=== PATIENT | male | born 1980 | race Caucasian/White ===

== ENCOUNTER → 2020-09-20 | Outpatient (CLI) | payer BC, OTHER ==
[~2020-09-20] MED LIST: HYDR-34 PO
--- NOTE | 2020-09-20 09:47 | Diagnostic Imaging Report ---
PROCEDURE: CT sinuses without contrast TECHNIQUE: Multiple contiguous axial images were obtained through the sinuses without the use of intravenous contrast. Coronal and sagittal reformations were then performed. Auto Exposure Controls were utilized during the CT exam to meet ALARA standards for radiation dose reduction. INDICATION: Facial injury. FINDINGS: There are minimally displaced fractures involving nasal bones with mild leftward deviation of the anterior fracture fragments. No other definite acute fractures identified. 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 There is mural thickening in the floor of the right maxillary sinus, however no air-fluid level is identified. There is also mural thickening within the anterior ethmoid air cells, bilaterally. Mastoid air cells are clear. IMPRESSION: Mildly angulated bilateral nasal bone fractures. Clinical correlation would be useful. Mural thickening in anterior ethmoid air cells and mural thickening in the floor of the right maxillary sinus may be on the basis of chronic sinus disease. Dictated by: Dictated on workstation # [id number]
== END ==
LOC: RAD 08:25
PROVIDERS: ATTEND Otolaryngology Otolaryngology/Facial Plastic Surgery
DX: S02.2XXA Fracture of nasal bones, initial encounter for closed fracture (principal); J32.2 Chronic ethmoidal sinusitis
CPT/HCPCS: 70486

== ENCOUNTER 2021-10-30 10:45 | Emergency (ER) | payer OTHER ==
[~2021-10-30] VITALS: Ht 190.5 cm; Wt 81.6 kg
--- NOTE | 2021-10-30 11:16 | ED Cough/URI ---
General Chief Complaint: COVID19 Suspect/Confirmed Stated Complaint: SOB,COUGH,CP Source: patient Exam Limitations: no limitations History of Present Illness Date Seen by Provider: Oct 30, 2021 Time Seen by Provider: 11:00 Initial Comments to ER with shortness of breath, cough that is productive in nature, chest tightness. The cough has been present since , he had a telehealth visit on the Friday after and was given a prescription for amoxicillin but did not notice any improvement. He has a history of bronchitis he says. He does not smoke. He is unvaccinated against COVID. He has not had fevers but he did have some chills last night, headache this morning. His chest tightness seems to come and go at random and was improved with use of a nebulizer that his family has at home last night. He is otherwise healthy and has no medical conditions and takes no medications Timing/Duration: constant Severity/Quality: moderate Prior Episodes/Possible Cause: occasional episodes Associated Symptoms: cough, shortness of breath Allergies and Home Medications Allergies Coded Allergies: No Known Drug Allergies (Unverified , 07/25/12) Patient Home Medication List Home Medication List Reviewed: Yes Hydrocodone Bit/Acetaminophen (Lortab 7.5 Mg Tablet) 1 Ea Tablet, 1-2 EA PO Q 4 - 6 HR PRN, (Reported) Entered as Reported by: YANETH UDMONT on 07/26/12 0936 Review of Systems Review of Systems Constitutional: see HPI, chills EENTM: see HPI Respiratory: see HPI, cough, short of breath Genitourinary: no symptoms reported Musculoskeletal: no symptoms reported Skin: no symptoms reported Psychiatric/Neurological: No Symptoms Reported Hematologic/Lymphatic: No Symptoms Reported Immunological/Allergic: no symptoms reported Physical Exam Vital Signs - First Documented 10/30/21 10:55 Temp 36.8 Pulse 77 Resp 18 B/P (MAP) 136/87 (103) Pulse Ox 100 O2 Delivery Room Air Capillary Refill : Height: '" Weight: lbs. oz. kg; BMI Method:Stated General Appearance: WD/WN, no apparent distress, thin, other (Alert and oriented no distress heart rate 82 sinus oxygen 100% room air blood pressure 127/88.) HEENT: PERRL/EOMI, normal ENT inspection Neck: non-tender, full range of motion Respiratory: normal breath sounds, no respiratory distress, no accessory muscle use Cardiovascular: regular rate, rhythm, no murmur Gastrointestinal: normal bowel sounds, non tender, soft Neurologic/Psychiatric: alert, normal mood/affect, oriented x 3 Skin: normal color, warm/dry Progress/Results/Core Measures Suspected Sepsis SIRS Temperature: Pulse: Respiratory Rate: Laboratory Tests 10/30/21 11:00: White Blood Count 6.4 Blood Pressure / Mean: Laboratory Tests 10/30/21 11:00: Creatinine 1.01, Platelet Count 233, Total Bilirubin 0.8 Results/Orders Lab Results Laboratory Tests Test 10/30/21 11:00 10/30/21 11:03 Range/Units White Blood Count 6.4 4.3-11.0 10^3/uL Red Blood Count 4.26 L 4.30-5.52 10^6/uL Hemoglobin 13.0 L 13.3-17.7 g/dL Hematocrit 39 L 40-54 % Mean Corpuscular Volume 90 80-99 fL Mean Corpuscular Hemoglobin 31 25-34 pg Mean Corpuscular Hemoglobin Concent 34 32-36 g/dL Red Cell Distribution Width 12.2 10.0-14.5 % Platelet Count 233 130-400 10^3/uL Mean Platelet Volume 9.6 9.0-12.2 fL Immature Granulocyte % (Auto) 1 % Neutrophils (%) (Auto) 69 42-75 % Lymphocytes (%) (Auto) 9 L 12-44 % Monocytes (%) (Auto) 17 H 0-12 % Eosinophils (%) (Auto) 3 0-10 % Basophils (%) (Auto) 1 0-10 % Neutrophils # (Auto) 4.4 1.8-7.8 10^3/uL Lymphocytes # (Auto) 0.6 L 1.0-4.0 10^3/uL Monocytes # (Auto) 1.1 H 0.0-1.0 10^3/uL Eosinophils # (Auto) 0.2 0.0-0.3 10^3/uL Basophils # (Auto) 0.0 0.0-0.1 10^3/uL Immature Granulocyte # (Auto) 0.0 0.0-0.1 10^3/uL D-Dimer < 0.27 0.00-0.49 UG/ML Sodium Level 141 135-145 MMOL/L Potassium Level 3.8 3.6-5.0 MMOL/L Chloride Level 104 98-107 MMOL/L Carbon Dioxide Level 29 21-32 MMOL/L Anion Gap 8 5-14 MMOL/L Blood Urea Nitrogen 10 7-18 MG/DL Creatinine 1.01 0.60-1.30 MG/DL Estimat Glomerular Filtration Rate 81 BUN/Creatinine Ratio 10 Glucose Level 96 70-105 MG/DL Calcium Level 9.1 8.5-10.1 MG/DL Corrected Calcium 8.9 8.5-10.1 MG/DL Total Bilirubin 0.8 0.1-1.0 MG/DL Aspartate Amino Transf (AST/SGOT) 24 5-34 U/L Alanine Aminotransferase (ALT/SGPT) 19 0-55 U/L Alkaline Phosphatase 73 40-136 U/L C-Reactive Protein High Sensitivity 0.83 H 0.00-0.50 MG/DL Total Protein 7.8 6.4-8.2 GM/DL Albumin 4.3 3.2-4.5 GM/DL My Orders Orders - ARACELI TOMLINSON APRN Cbc With Automated Diff (10/30/21 10:52) Comprehensive Metabolic Panel (10/30/21 10:52) Fibrin Degradation Products (10/30/21 10:52) Procalcitonin (Pct) (10/30/21 10:52) Hs C Reactive Protein (10/30/21 10:52) Ekg Tracing (10/30/21 10:52) Influenza A And B By Pcr (10/30/21 10:52) Chest 1 View, Ap/Pa Only (10/30/21 10:52) Covid 19 Inhouse Test (10/30/21 10:52) Troponin I Reagan (10/30/21 11:01) Ed Iv/Invasive Line Start (10/30/21 11:16) Vital Signs/I&O 10/30/21 10:55 Temp 36.8 Pulse 77 Resp 18 B/P (MAP) 136/87 (103) Pulse Ox 100 O2 Delivery Room Air Capillary Refill : Departure Communication (Admissions) 1149-his symptoms have been present since [place], seemed to worsen last night with chills. Headache this morning as well. The date of onset is unclear. He is thin otherwise healthy without comorbidity and does not warrant monoclonal antibody infusion or Paxlovid EKG shows sinus rhythm rate of [address] segment change no ectopy Impression Primary Impression: COVID-19 Disposition: 01 HOME, SELF-CARE Condition: Stable Departure-Patient Inst. Decision time for Depature: 11:49 Referrals: LES WONG DO (PCP/Family) Primary Care Physician Patient Instructions: COVID-19 ED Add. Discharge Instructions: 1. Tylenol and ibuprofen for fever or pain. Quarantine for 5 days and then wear a mask for the following 5 days. It is unclear when your symptoms started since you have been sick since but you developed a headache and chills last night, yesterday may have been the day of onset. If that is the case you may feel poorly for another 1 to 2 weeks. All discharge instructions reviewed with patient and/or family. Voiced understanding. ARACLEI TOMLINSON APRN Oct 30, 2021 11:16
[2021-10-30 11:18] LABS: BASOPHILS % (AUTO) 1 % (0-10); EOSINOPHILS # (AUTO) 0.2 10^3/uL (0.0-0.3); EOSINOPHILS % (AUTO) 3 % (0-10); HEMATOCRIT 39 % (40-54); LYMPHOCYTES # (AUTO) 0.6 10^3/uL (1.0-4.0); LYMPHOCYTES % (AUTO) 9 % (12-44); MEAN CORPUSCULAR HEMOGLOBIN 31 pg (25-34); MEAN CORPUSCULAR HGB CONC 34 g/dL (32-36); MEAN CORPUSCULAR VOLUME 90 fL (80-99); MEAN PLATELET VOLUME 9.6 fL (9.0-12.2); MONOCYTES # (AUTO) 1.1 10^3/uL (0.0-1.0); MONOCYTES % (AUTO) 17 % (0-12); NEUTROPHILS # (AUTO) 4.4 10^3/uL (1.8-7.8); NEUTROPHILS % (AUTO) 69 % (42-75); PLATELET COUNT 233 10^3/uL (130-400); WHITE BLOOD COUNT 6.4 10^3/uL (4.3-11.0)
[2021-10-30 11:32] LABS: ALBUMIN 4.3 GM/DL (3.2-4.5); CHLORIDE 104 MMOL/L (98-107); POTASSIUM 3.8 MMOL/L (3.6-5.0); SODIUM 141 MMOL/L (135-145)
[2021-10-30 11:33] LABS: CALCIUM 9.1 MG/DL (8.5-10.1)
[2021-10-30 11:35] LABS: GLUCOSE 96 MG/DL (70-105); TOTAL PROTEIN 7.8 GM/DL (6.4-8.2)
[2021-10-30 11:36] LABS: BILIRUBIN,TOTAL 0.8 MG/DL (0.1-1.0); CARBON DIOXIDE 29 MMOL/L (21-32)
[2021-10-30 11:38] LABS: ALKALINE PHOSPHATASE 73 U/L (40-136); CREATININE SERUM 1.01 MG/DL (0.60-1.30); GFR ESTIMATED 81
[2021-10-30 11:39] LABS: BUN/CREATININE RATIO 10
[2021-10-30 11:41] LABS: ALANINE AMINOTRANSFERASE 19 U/L (0-55)
[2021-10-30] MEDS ORDERED: RT-ALBUINH IH (12:04)
[2021-10-30 12:12] VITALS: BP 127/86
--- NOTE | 2021-10-30 12:17 | Diagnostic Imaging Report ---
INDICATION: Cough, shortness of air, bronchitis. COMPARISON: 07/31/2015 FINDINGS: No focal pulmonary consolidation. No failure pattern, effusion or pneumothorax. No free air beneath the diaphragms. IMPRESSION: No acute or focal abnormalities unchanged from prior. Dictated by: Dictated on workstation # [id number]
== END 2021-10-30 12:13 | disposition home or self-care (01) ==
LOC: EDUNIT# 10:45 → ER 10:48
DX: U07.1 COVID-19 (principal)
CPT/HCPCS: 36415; 71045; 80053; 84145; 84484; 85025; 85379; 86141; 87636; 93005